=== PATIENT | male | born 1995 | race Caucasian/White ===

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

== ENCOUNTER 2018-02-17 10:19 | Emergency (ER) | payer OTHER ==
[2018-02-17 10:56] VITALS: RESP 18; TEMP 98.8
[2018-02-17] MEDS ORDERED: ACETAMINOPHEN TAB 500 MG TAB PO STA (11:37)
--- NOTE | 2018-02-17 11:46 | ED ---
Extremity Problem HPI - General Chief complaint: Extremity Problem,Nontraumatic Stated complaint: Anxiety Time Seen by Provider: 02/17/18 10:21 Source: EMS Mode of arrival: EMS Limitations: no limitations - History of Present Illness Initial comments: 22-year-old male patient presents to the emergency department today for evaluation of bilateral bicep pain. Patient states he feels a sharp pinching sensation. States that it comes on at rest. States that the pain is mostly on the left bicep however does occasionally happen in the right bicep. States he did lift a large chair 3 days ago. States has been taking Tylenol for his pain. He denies any numbness or tingling to the upper extremities. Patient does have history of kidney disease with hypokalemia. He does take potassium daily. Patient also has history of anxiety. Parent and family are present they 're concerned due to family history of heart disease. Patient denies any recent rash, fever, chills, shortness breath, chest pain, abdominal pain, nausea, vomiting, diarrhea, constipation, back pain, numbness, tingling, dizziness, weakness, hematuria, dysuria, urinary urgency, urinary frequency, headache, visual changes, or any other complaints. - Related Data Home Medications Medication Instructions Recorded Confirmed Potassium Chloride [Klor-Con 20] 20 meq PO BID 06/14/16 02/17/18 hydrOXYzine HCL [Atarax] 50 mg PO HS 10/30/17 02/17/18 Allergies Allergy/AdvReac Type Severity Reaction Status Date / Time latex Allergy Rash/Hives Verified 02/17/18 10:38 Penicillins Allergy Rash/Hives Verified 02/17/18 10:38 Review of Systems ROS Statement: Those systems with pertinent positive or pertinent negative responses have been documented in the HPI. ROS Other: All systems not noted in ROS Statement are negative. Past Medical History Past Medical History: Asthma, GERD/Reflux Additional Past Medical History / Comment(s): social anxiety History of Any Multi-Drug Resistant Organisms: None Reported Past Surgical History: No Surgical Hx Reported Past Psychological History: Anxiety Smoking Status: Never smoker Past Alcohol Use History: None Reported Past Drug Use History: None Reported General Exam Limitations: no limitations General appearance: alert, in no apparent distress, other (Physical well- developed, well-nourished adult male patient in no acute distress. Vital signs upon presentation are temperature 98.8F, pulse 92, respirations 18, blood pressure 147/83, pulse ox 98% on room air.) Eye exam: Present: normal appearance, PERRL, EOMI. Absent: scleral icterus, conjunctival injection, periorbital swelling ENT exam: Present: normal exam, normal oropharynx, mucous membranes moist Respiratory exam: Present: normal lung sounds bilaterally. Absent: respiratory distress, wheezes, rales, rhonchi, stridor Cardiovascular Exam: Present: regular rate, normal rhythm, normal heart sounds. Absent: systolic murmur, diastolic murmur, rubs, gallop, clicks GI/Abdominal exam: Present: soft, normal bowel sounds. Absent: distended, tenderness, guarding, rebound, rigid Extremities exam: Present: normal inspection, full ROM, tenderness (Tenderness over the bilateral biceps), normal capillary refill, other (Skin to the upper extremities is pink, warm, dry. Cap refills less than 3 seconds. Radial pulses 2+ and equal bilaterally.). Absent: pedal edema, joint swelling, calf tenderness Neurological exam: Present: alert, oriented X3, CN II-XII intact Psychiatric exam: Present: normal affect, normal mood Skin exam: Present: warm, dry, intact, normal color. Absent: rash Course Vital Signs 02/17/18 10:50 Temperature 98.8 F Pulse Rate 92 Respiratory 18 Rate Blood Pressure 147/83 O2 Sat by Pulse 98 Oximetry Medical Decision Making - Medical Decision Making 22-year-old male patient presents to the emergency department today with complaints of left bicep pain medication is in the right bicep as well. Physical examination did reveal some tenderness over the bicep. Patient does have history of hypokalemia and does take potassium supplement, we did check CMP potassium is normal 4.1. Kidney function is within normal range. EKG showed normal sinus rhythm with no ectopy or evidence of ST elevation or depression. Did discuss findings and results with the patient. He did lift a chair 3 days ago states there is some concern for muscle strain. He is instructed to take Tylenol for pain control. He is instructed to follow-up with his primary care physician for recheck in 1-2 days. Return parameters were discussed in detail. He verbalizes understanding and agrees with this plan. - Lab Data Result diagrams: 02/17/18 12:20 Lab Results 12/30/18 Range/Units 12:20 Sodium 144 (137-145) mmol/L Potassium 4.1 (3.5-5.1) mmol/L Chloride 107 (98-107) mmol/L Carbon Dioxide 25 (22-30) mmol/L Anion Gap 12 mmol/L BUN 9 (9-20) mg/dL Creatinine 1.09 (0.66-1.25) mg/dL Est GFR (CKD-EPI)AfAm >90 (>60 ml/min/1.73 sqM) Est GFR (CKD-EPI)NonAf >90 (>60 ml/min/1.73 sqM) Glucose 97 (74-99) mg/dL Calcium 9.9 (8.4-10.2) mg/dL Total Bilirubin 0.6 (0.2-1.3) mg/dL AST 95 H (17-59) U/L ALT 167 H (21-72) U/L Alkaline Phosphatase 101 (38-126) U/L Total Protein 8.7 H (6.3-8.2) g/dL Albumin 4.6 (3.5-5.0) g/dL - EKG Data -: EKG Interpreted by Md EKG Comments: EKG obtained at 1217 shows normal sinus rhythm with a ventricular rate of 84, AK interval 136, QRS duration 80, QT 346, QTc 408. No evidence of ST elevation or depression. Disposition Clinical Impression: Muscle ache Disposition: HOME SELF-CARE Condition: Good Instructions: Musculoskeletal Pain (ED) Additional Instructions: Continue taking Tylenol for pain control. Rest arms. Follow-up with your primary care physician for recheck in 1-2 days. Return immediately for any new , worsening, or concerning symptoms. Is patient prescribed a controlled substance at d/c from ED?: No Referrals: None,Stated [Primary Care Provider] - 1-2 days Time of Disposition: 12:48
[2018-02-17 12:38] LABS: ALT 167 U/L (21-72); AST 95 U/L (17-59); Albumin 4.6 g/dL (3.5-5.0); Alkaline Phosphatase 101 U/L (38-126); Anion Gap 12 mmol/L; Blood Urea Nitrogen 9 mg/dL (9-20); Calcium 9.9 mg/dL (8.4-10.2); Carbon Dioxide 25 mmol/L (22-30); Chloride 107 mmol/L (98-107); Glucose 97 mg/dL (74-99); Potassium 4.1 mmol/L (3.5-5.1); Sodium 144 mmol/L (137-145); Total Bilirubin 0.6 mg/dL (0.2-1.3); Total Protein 8.7 g/dL (6.3-8.2)
[2018-02-17 13:20] VITALS: BP 124/69; PULSE 73
== END 2018-02-17 13:18 | disposition home or self-care (01) ==
LOC: EC 10:19
DX: M79.18 Myalgia, other site (principal); E87.6 Hypokalemia; F41.9 Anxiety disorder, unspecified; Z79.899 Other long term (current) drug therapy; Z88.0 Allergy status to penicillin; Z91.040 Latex allergy status; Z82.49 Family history of ischemic heart disease and other diseases of the circulatory system
CPT/HCPCS: 36415; 80053; 93005; 99284

== ENCOUNTER 2021-02-24 12:48 | Emergency (ER) | payer OTHER ==
[2021-02-24] MEDS ORDERED: SODIUM CHLORIDE 0.9% 1,000 ML IV STA (13:01)
--- NOTE | 2021-02-24 13:05 | ED ---
Anxiety HPI - General Stated Complaint: Increased heart rate Time Seen by Provider: 02/24/21 12:52 Source: patient, RN notes reviewed Mode of arrival: EMS Limitations: no limitations - History of Present Illness Initial Comments: This is a pleasant 25-year-old male coming to the ER complaining of anxiety and fast heart rate. Patient also has shaking involving both upper extremities. Patient states he has had previous symptomology such as this. Patient states he had to come to the ER and get anxiety medications. Has a history of anxiety and panic attacks. Denies any chest pain. Did get a fluttering type sensation with a fast heart rate. No nausea or vomiting. No change in bowel or urination. Patient denies any stimulant use. No caffeine use. No illicit drug abuse. No fever or chills. No shortness of breath. No headache. No vision or hearing changes. No skin rashes or lesions. MD Complaint: anxiety - Related Data Home Medications: Home Medications Medication Instructions Recorded Confirmed hydrOXYzine HCL [Atarax] 50 mg PO DAILY 10/30/17 02/24/21 Ketoconazole 2% Shampoo [Nizoral] 1 applic TOPICAL Q3D 02/24/21 02/24/21 Allergies/Adverse Reactions: Allergies Allergy/AdvReac Type Severity Reaction Status Date / Time latex Allergy Rash/Hives Verified 02/24/21 14:10 Penicillins Allergy Rash/Hives Verified 02/24/21 14:10 Review of Systems ROS Statement: Those systems with pertinent positive or pertinent negative responses have been documented in the HPI. ROS Other: All systems not noted in ROS Statement are negative. Past Medical History Past Medical History: Asthma, GERD/Reflux Additional Past Medical History / Comment(s): social anxiety History of Any Multi-Drug Resistant Organisms: None Reported Past Surgical History: No Surgical Hx Reported Past Psychological History: Anxiety Past Alcohol Use History: None Reported Past Drug Use History: None Reported General Exam General appearance: alert, anxious Head exam: Present: atraumatic, normocephalic, normal inspection Eye exam: Present: normal appearance, PERRL, EOMI. Absent: scleral icterus, conjunctival injection, periorbital swelling Pupils: Present: normal accommodation ENT exam: Present: normal exam, normal oropharynx, mucous membranes moist Neck exam: Present: normal inspection. Absent: tenderness, meningismus, lymphadenopathy Respiratory exam: Present: normal lung sounds bilaterally. Absent: respiratory distress, wheezes, rales, rhonchi, stridor Cardiovascular Exam: Present: normal rhythm, tachycardia, normal heart sounds. Absent: systolic murmur, diastolic murmur, rubs, gallop, clicks GI/Abdominal exam: Present: soft, normal bowel sounds. Absent: distended, tenderness, guarding, rebound, rigid Extremities exam: Present: normal inspection, full ROM, normal capillary refill. Absent: tenderness, pedal edema, joint swelling, calf tenderness Back exam: Present: normal inspection Neurological exam: Present: alert, oriented X3, CN II-XII intact, normal gait, other (Patient has a fine tremor noted to both upper extremities. Does not appear to be anything focal. Cranial nerves II through XII are intact. Graham's coma scale is 15.). Absent: altered, abnormal gait, motor sensory deficit, reflexes normal Psychiatric exam: Present: normal mood, anxious. Absent: depressed, agitated, flat affect, manic, suicidal ideation Skin exam: Present: warm, dry, intact, normal color. 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 Asymptomatic. Heart rate is 94 as I'm assessing him in the room. Medical Decision Making - Medical Decision Making Patient presents with symptoms most consistent with anxiety with secondary tachycardia. Patient has had these before. He has no chest pain or shortness of breath. This unlikely to be other etiology such as pulmonary embolism or cardiac disease. Patient does have a tremor. Electrolyte disturbance is within the differential. We'll plan for EKG, serum electrolytes, reevaluation, anxiolytics. Patient does not appear to be ill or toxic. Infectious etiology unlikely. Case discussion detail with the supervising physician, Dr. Mcdonald. Patient asymptomatic at discharge. Hemodynamic stable with normal vital signs. Suspect the patient's symptomology is related to anxiety. However patient may need further outpatient testing. Patient told to call and make an appointment w ith his regular physician. H instructed to call tomorrow morning. Patient was told to return to the ER for any signs or symptoms worsen. Told to return immediately if any other problems arise. All questions answered. Treatment plan discussed. Patient in agreement - Lab Data Result diagrams: 02/24/21 13:14 02/24/21 15:27 Lab Results 02/24/21 02/24/21 02/24/21 Range/Units 13:14 13:14 13:14 WBC 7.9 (3.8-10.6) k/uL RBC 5.62 (4.30-5.90) m/uL Hgb 16.9 (13.0-17.5) gm/dL Hct 48.4 (39.0-53.0) % MCV 86.0 (80.0-100.0) fL MCH 30.1 (25.0-35.0) pg MCHC 35.0 (31.0-37.0) g/dL RDW 12.9 (11.5-15.5) % Plt Count 250 (150-450) k/uL MPV 6.8 Neutrophils % 62 % Lymphocytes % 30 % Monocytes % 5 % Eosinophils % 2 % Basophils % 1 % Neutrophils # 4.9 (1.3-7.7) k/uL Lymphocytes # 2.3 (1.0-4.8) k/uL Monocytes # 0.4 (0-1.0) k/uL Eosinophils # 0.1 (0-0.7) k/uL Basophils # 0.0 (0-0.2) k/uL Sodium 141 (137-145) mmol/L Potassium 3.9 (3.5-5.1) mmol/L Chloride 106 (98-107) mmol/L Carbon Dioxide 25 (22-30) mmol/L Anion Gap 10 mmol/L BUN 7 L (9-20) mg/dL Creatinine 1.08 (0.66-1.25) mg/dL Est GFR (CKD-EPI)AfAm >90 (>60 ml/min/1.73 sqM) Est GFR (CKD-EPI)NonAf >90 (>60 ml/min/1.73 sqM) Glucose 170 H (74-99) mg/dL Calcium 9.9 (8.4-10.2) mg/dL Magnesium 2.1 (1.6-2.3) mg/dL Troponin I (0.000-0.034) ng/mL TSH 0.849 (0.465-4.680) mIU/L Urine Opiates Screen Not Detected (NotDetected) Ur Oxycodone Screen Not Detected (NotDetected) Urine Methadone Screen Not Detected (NotDetected) Ur Propoxyphene Screen Not Detected (NotDetected) Ur Barbiturates Screen Not Detected (NotDetected) U Tricyclic Antidepress Not Detected (NotDetected) Ur Phencyclidine Scrn Not Detected (NotDetected) Ur Amphetamines Screen Not Detected (NotDetected) U Methamphetamines Scrn Not Detected (NotDetected) U Benzodiazepines Scrn Not Detected (NotDetected) Urine Cocaine Screen Not Detected (NotDetected) U Marijuana (THC) Screen Not Detected (NotDetected) Coronavirus (PCR) (Not Detectd) 02/24/21 02/24/21 02/24/21 Range/Units 13:14 15:27 15:27 WBC (3.8-10.6) k/uL RBC (4.30-5.90) m/uL Hgb (13.0-17.5) gm/dL Hct (39.0-53.0) % MCV (80.0-100.0) fL MCH (25.0-35.0) pg MCHC (31.0-37.0) g/dL RDW (11.5-15.5) % Plt Count (150-450) k/uL MPV Neutrophils % % Lymphocytes % % Monocytes % % Eosinophils % % Basophils % % Neutrophils # (1.3-7.7) k/uL Lymphocytes # (1.0-4.8) k/uL Monocytes # (0-1.0) k/uL Eosinophils # (0-0.7) k/uL Basophils # (0-0.2) k/uL Sodium (137-145) mmol/L Potassium 4.2 (3.5-5.1) mmol/L Chloride (98-107) mmol/L Carbon Dioxide (22-30) mmol/L Anion Gap mmol/L BUN (9-20) mg/dL Creatinine (0.66-1.25) mg/dL Est GFR (CKD-EPI)AfAm (>60 ml/min/1.73 sqM) Est GFR (CKD-EPI)NonAf (>60 ml/min/1.73 sqM) Glucose (74-99) mg/dL Calcium (8.4-10.2) mg/dL Magnesium 2.1 (1.6-2.3) mg/dL Troponin I <0.012 (0.000-0.034) ng/mL TSH (0.465-4.680) mIU/L Urine Opiates Screen (NotDetected) Ur Oxycodone Screen (NotDetected) Urine Methadone Screen (NotDetected) Ur Propoxyphene Screen (NotDetected) Ur Barbiturates Screen (NotDetected) U Tricyclic Antidepress (NotDetected) Ur Phencyclidine Scrn (NotDetected) Ur Amphetamines Screen (NotDetected) U Methamphetamines Scrn (NotDetected) U Benzodiazepines Scrn (NotDetected) Urine Cocaine Screen (NotDetected) U Marijuana (THC) Screen (NotDetected) Coronavirus (PCR) Not Detected (Not Detectd) - EKG Data -: EKG Interpreted by Me EKG Comments: EKG done at 2256 and review by the ED attending physician shows artifact in lead V1. No evidence of acute ST or T-wave changes. Possible left atrial enlargement. Normal intervals. Sinus tachycardia with a rate of 118. Disposition Clinical Impression: Palpitation, Hyperventilation Disposition: HOME SELF-CARE Condition: Good Instructions (If sedation given, give patient instructions): Generalized Anxiety Disorder (ED), Heart Palpitations (ED) Additional Instructions: Follow-up with your regular physician as directed. Return to the ER immediately if any symptoms worsen, new symptoms arise, or any other problems develop. Is patient prescribed a controlled substance at d/c from ED?: No Referrals: Cristiane Beltre MD [Primary Care Provider] - 1-2 days Time of Disposition: 16:35
[2021-02-24 13:06] VITALS: RESP 18
[2021-02-24] MEDS ORDERED: LORazepam 2 MG/ML INJ IV STA (13:07)
[2021-02-24 13:31] LABS: Basophils % (A) 1 %; Eosinophils # (A) 0.1 k/uL (0-0.7); Eosinophils % (A) 2 %; HCT 48.4 % (39.0-53.0); HGB 16.9 gm/dL (13.0-17.5); Lymphocytes # (A) 2.3 k/uL (1.0-4.8); Lymphocytes % (A) 30 %; MCH 30.1 pg (25.0-35.0); Mean Platelet Volume 6.8; Monocytes # (A) 0.4 k/uL (0-1.0); Monocytes % (A) 5 %; Neutrophils # (A) 4.9 k/uL (1.3-7.7); Neutrophils % (A) 62 %; Platelet Count 250 k/uL (150-450); RBC 5.62 m/uL (4.30-5.90); RDW 12.9 % (11.5-15.5); WBC 7.9 k/uL (3.8-10.6)
--- NOTE | 2021-02-24 13:41 | XR ---
EXAMINATION TYPE: XR chest 1V portable DATE OF EXAM: 02/24/2021 COMPARISON: NONE HISTORY: Tachycardia. TECHNIQUE: Single AP frontal upright view of the chest is obtained. FINDINGS: There is no focal air space opacity, pleural effusion, or pneumothorax seen. The cardiac silhouette size is within normal limits. The osseous structures are intact. IMPRESSION: No acute process.
[2021-02-24 13:43] LABS: African American GFR (CKD) >90 (>60 ml/min/1.73 sqM); Anion Gap 10 mmol/L; Blood Urea Nitrogen 7 mg/dL (9-20); Calcium 9.9 mg/dL (8.4-10.2); Carbon Dioxide 25 mmol/L (22-30); Chloride 106 mmol/L (98-107); Glucose 170 mg/dL (74-99); Non-African American GFR(CKD) >90 (>60 ml/min/1.73 sqM); Sodium 141 mmol/L (137-145)
[2021-02-24 14:07] LABS: Magnesium 2.1 mg/dL (1.6-2.3); Potassium 3.9 mmol/L (3.5-5.1)
[2021-02-24 14:14] LABS: Amphetamine Screen,Urine Not Detected (NotDetected); Barbiturate Screen,Urine Not Detected (NotDetected); Benzodiazepines Screen,Urine Not Detected (NotDetected); Cocaine Screen,Urine Not Detected (NotDetected); Methadone Screen, Urine Not Detected (NotDetected); Opiate Screen,Urine Not Detected (NotDetected); Oxycodone Screen, Urine Not Detected (NotDetected); Phencyclidine Screen,Urine Not Detected (NotDetected); Tricyclic Antidepressant,Urine Not Detected (NotDetected); Urn Cannabinoid Scrn Not Detected (NotDetected)
[2021-02-24 15:46] LABS: Magnesium 2.1 mg/dL (1.6-2.3); Potassium 4.2 mmol/L (3.5-5.1)
[2021-02-24 16:54] VITALS: BP 133/71; PULSE 107; TEMP 97.5
== END 2021-02-24 16:54 | disposition home or self-care (01) ==
LOC: EC 12:48
DX: R00.2 Palpitations (principal); R06.4 Hyperventilation; Z91.040 Latex allergy status; J45.909 Unspecified asthma, uncomplicated; K21.9 Gastro-esophageal reflux disease without esophagitis; F41.9 Anxiety disorder, unspecified; Z88.0 Allergy status to penicillin; Z20.822 Contact with and (suspected) exposure to COVID-19
CPT/HCPCS: 99285; 96374; 96361; 36415; 93005; 80048; 83735; 84132; 84443; 84484; 85025; 80306; 87635; 71045; J2060

== ENCOUNTER → 2021-09-02 | Outpatient (CLI) | payer OTHER ==
--- NOTE | 2021-09-02 10:40 | US ---
EXAMINATION TYPE: US abdomen complete DATE OF EXAM: 09/02/2021 COMPARISON: NONE CLINICAL HISTORY: R74.8 Elevated liverr enzymes. Elevated liver enzymes EXAM MEASUREMENTS: Liver Length: 12.3 cm Gallbladder Wall: 0.20 cm CBD: 0.22 cm Spleen: 12.1 cm Right Kidney: 10.3 x 5.4 x 5.2 cm Left Kidney: 12.1 X 4.9 X 4.6 cm Pancreas: Obscured by bowel gas Liver: Increased attenuation, heterogeneous Gallbladder: wnl Evidence for sonographic Thomas's sign: No CBD: wnl Spleen: wnl Right Kidney: wnl Left Kidney: wnl Upper IVC: wnl Abd Aorta: wnl The visualized liver is heterogeneously hyperechoic. Evaluation for focal masses suboptimal due to th e heterogeneity. No surrounding ascites. The intrahepatic portion of the IVC and visualized proximal, mid, and distal abdominal aorta are within normal limits. There is no evidence of cholelithiasis. Common bile duct is unremarkable. Suboptimal evaluation of pancreas on initial images. The spleen is unremarkable. Kidneys are symmetric and free of hydronephrosis. No renal lesions are seen. IMPRESSION: Heterogeneous hyperechoic appearance of liver consistent with diffuse fatty infiltration and/or underlying hepatocellular disease. The former is favored.
--- NOTE | 2021-09-02 11:47 | US ---
EXAMINATION TYPE: US renal artery duplex complet DATE OF EXAM: 09/02/2021 COMPARISON: Same-day ultrasound abdomen. CLINICAL HISTORY: E87.6 HYPOKALEMIA R03.0 ELEVATED BLOOD-PRESSURE READING WITH. HTN for 1-2 months MEASUREMENTS: RENAL SIZE: Rt Kidney: 10.3 x 5.4 x 5.2cm Lt Kidney: 12.1 x 4.9 x 4.6cm RESISTANCE INDEX Right: 0.62 Left: 0.62 RA/AO RATIO (< 3.5 ) Right: 1.2 Left: 2.2 RA VELOCITY ( < 180 cm/s) Right: 174.2cm/s Left: 322.7cm/s limitations due to overlying bowel content. aorta and renal images under abdomen complete from suzanne faulkner. aorta and renal appear unremarkable. left renal artery stenosis Suboptimal study due to overlying Bowel gas. No aneurysm in the visualized abdominal aorta. Renal siz e is fairly symmetric and within normal limits. Some elevated left renal artery velocity in the proxi mal left renal artery without abnormal ratio or resistive index. IMPRESSION: No convincing evidence for suspicious focal renal artery stenosis. If symptoms of uncontr olled hypertension persists further investigation with MRA aorta would be advised.
== END | disposition home or self-care (01) ==
LOC: RADUSWWP 09:30
PROVIDERS: ATTEND Family Medicine
DX: K76.0 Fatty (change of) liver, not elsewhere classified (principal)
CPT/HCPCS: 76700; 93975

== ENCOUNTER 2022-01-01 18:57 | Emergency (ER) | payer OTHER ==
[2022-01-01 19:04] VITALS: TEMP 98.1
[2022-01-01] MEDS ORDERED: diphenhydrAMINE 50 MG/ML 1 ML VIAL IM STA (19:22)
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
[2022-01-01 19:35] LABS: Basophils # (A) 0.1 k/uL (0-0.2); Basophils % (A) 1 %; Eosinophils # (A) 0.1 k/uL (0-0.7); Eosinophils % (A) 1 %; HCT 46.1 % (39.0-53.0); HGB 15.9 gm/dL (13.0-17.5); Lymphocytes # (A) 1.8 k/uL (1.0-4.8); Lymphocytes % (A) 22 %; MCH 27.9 pg (25.0-35.0); MCHC 34.6 g/dL (31.0-37.0); MCV 80.8 fL (80.0-100.0); Mean Platelet Volume 7.2; Monocytes # (A) 0.3 k/uL (0-1.0); Monocytes % (A) 4 %; Neutrophils # (A) 5.7 k/uL (1.3-7.7); Neutrophils % (A) 71 %; Platelet Count 231 k/uL (150-450); RBC 5.71 m/uL (4.30-5.90); RDW 13.4 % (11.5-15.5)
[2022-01-01 20:12] LABS: African American GFR (CKD) >90 (>60 ml/min/1.73 sqM); Anion Gap 10 mmol/L; Blood Urea Nitrogen 9 mg/dL (9-20); Calcium 9.6 mg/dL (8.4-10.2); Carbon Dioxide 26 mmol/L (22-30); Chloride 105 mmol/L (98-107); Glucose 107 mg/dL (74-99); Non-African American GFR(CKD) >90 (>60 ml/min/1.73 sqM); Potassium 4.2 mmol/L (3.5-5.1); Sodium 141 mmol/L (137-145)
--- NOTE | 2022-01-01 20:18 | XR ---
EXAMINATION TYPE: XR chest 2V DATE OF EXAM: 01/01/2022 COMPARISON: 02/24/2021 HISTORY: Dizziness TECHNIQUE: 2 views FINDINGS: Heart and mediastinum are normal. Lungs are clear. Diaphragm is normal. Bony thorax is inta ct. IMPRESSION: Normal chest. No change.
[2022-01-01 21:37] VITALS: BP 140/80; PULSE 76; RESP 16
== END 2022-01-01 21:37 | disposition home or self-care (01) ==
LOC: EC 18:57
DX: F41.9 Anxiety disorder, unspecified (principal); J45.909 Unspecified asthma, uncomplicated; K21.9 Gastro-esophageal reflux disease without esophagitis; Z79.899 Other long term (current) drug therapy; Z91.040 Latex allergy status; Z88.0 Allergy status to penicillin
CPT/HCPCS: 36415; 93005; 80048; 85025; 71046; 99285; 96372; J1200

== ENCOUNTER 2022-02-02 19:26 | Emergency (ER) | payer OTHER ==
[2022-02-02 19:47] VITALS: BP 143/83; PULSE 100; RESP 20; TEMP 98.2
[2022-02-02] MEDS ORDERED: ONDANSETRON 4 MG/2 ML VIAL IVP STA (21:57)
[2022-02-02] MEDS ORDERED: PANTOPRAZOLE 40 MG/10 ML VIAL IVP STA (21:57)
[2022-02-02] MEDS ORDERED: MORPHINE SULFATE 4 MG/ML SYRINGE IV STA (21:57)
--- NOTE | 2022-02-02 21:57 | ED ---
Abdominal Pain HPI - General Chief Complaint: Abdominal Pain Stated Complaint: abdomen pain Time Seen by Provider: 02/02/22 21:56 Source: patient, RN notes reviewed, old records reviewed Mode of arrival: ambulatory Limitations: no limitations - History of Present Illness Initial Comments: This is a 26-year-old male DF for evaluation patient has present sensation today for evaluation of abdominal pain. History of abdominal pain history of nausea no vomiting does admit to diminished non-normal bowel habits. No travel history no sick contacts no history of surgery MD Complaint: abdominal pain -: days(s) Location: diffuse, epigastric, suprapubic Radiation: epigastric, suprapubic Migration to: epigastric, suprapubic Severity: moderate Severity scale (1-10): 7 Quality: fullness, sharp Consistency: intermittent Improves With: nothing Worsens With: nothing Context: other (0) Associated Symptoms: nausea, vomiting Treatments Prior to Arrival: other (0) - Related Data Home Medications Medication Instructions Recorded Confirmed hydrOXYzine HCL [Atarax] 50 mg PO DAILY 10/30/17 02/24/21 Ketoconazole 2% Shampoo [Nizoral] 1 applic TOPICAL Q3D 02/24/21 02/24/21 Allergies Allergy/AdvReac Type Severity Reaction Status Date / Time latex Allergy Rash/Hives Verified 02/02/22 19:47 Penicillins Allergy Rash/Hives Verified 02/02/22 19:47 Review of Systems ROS Statement: Those systems with pertinent positive or pertinent negative responses have been documented in the HPI. ROS Other: All systems not noted in ROS Statement are negative. Past Medical History Past Medical History: Asthma, GERD/Reflux Additional Past Medical History / Comment(s): social anxiety History of Any Multi-Drug Resistant Organisms: None Reported Past Surgical History: No Surgical Hx Reported Past Psychological History: Anxiety Past Alcohol Use History: None Reported Past Drug Use History: None Reported General Exam Limitations: no limitations General appearance: alert, in no apparent distress Head exam: Present: atraumatic, normocephalic, normal inspection Eye exam: Present: normal appearance, PERRL, EOMI. Absent: scleral icterus, conjunctival injection, periorbital swelling ENT exam: Present: normal exam, mucous membranes moist Neck exam: Present: normal inspection. Absent: tenderness, meningismus, lymphadenopathy Respiratory exam: Present: normal lung sounds bilaterally. Absent: respiratory distress, wheezes, rales, rhonchi, stridor Cardiovascular Exam: Present: regular rate, normal rhythm, normal heart sounds. Absent: systolic murmur, diastolic murmur, rubs, gallop, clicks GI/Abdominal exam: Present: soft, normal bowel sounds. Absent: distended, tenderness, guarding, rebound, rigid Extremities exam: Present: normal inspection, full ROM, normal capillary refill. Absent: tenderness, pedal edema, joint swelling, calf tenderness Back exam: Present: normal inspection Neurological exam: Present: alert, oriented X3, CN II-XII intact Psychiatric exam: Present: normal affect, normal mood Skin exam: Present: warm, dry, intact, normal color. Absent: rash Course Vital Signs 02/02/22 19:44 Temperature 98.2 F Pulse Rate 100 Respiratory 20 Rate Blood Pressure 143/83 O2 Sat by Pulse 96 Oximetry - Reevaluation(s) Reevaluation #1: 02/02/22 Medical record is reviewed Patient symptoms improved here in the ER Patient informed of results and questions answered Medical Decision Making - Medical Decision Making 26 male who states is had diminished bowel output lately not normal for about 2 months but has computed tomography scan here in the emergency room which is nonsignificant. Patient can be discharged home - Lab Data Result diagrams: 02/02/22 22:04 02/02/22 22:04 Lab Results 02/02/22 02/02/22 Range/Units 22:04 22:04 WBC 8.6 (3.8-10.6) k/uL RBC 5.68 (4.30-5.90) m/uL Hgb 16.9 (13.0-17.5) gm/dL Hct 46.7 (39.0-53.0) % MCV 82.2 (80.0-100.0) fL MCH 29.8 (25.0-35.0) pg MCHC 36.2 (31.0-37.0) g/dL RDW 12.8 (11.5-15.5) % Plt Count 257 (150-450) k/uL MPV 6.8 Neutrophils % 68 % Lymphocytes % 24 % Monocytes % 5 % Eosinophils % 1 % Basophils % 1 % Neutrophils # 5.8 (1.3-7.7) k/uL Lymphocytes # 2.1 (1.0-4.8) k/uL Monocytes # 0.4 (0-1.0) k/uL Eosinophils # 0.1 (0-0.7) k/uL Basophils # 0.1 (0-0.2) k/uL Sodium 143 (137-145) mmol/L Potassium 4.4 (3.5-5.1) mmol/L Chloride 104 (98-107) mmol/L Carbon Dioxide 28 (22-30) mmol/L Anion Gap 11 mmol/L BUN 7 L (9-20) mg/dL Creatinine 1.13 (0.66-1.25) mg/dL Est GFR (CKD-EPI)AfAm >90 (>60 ml/min/1.73 sqM) Est GFR (CKD-EPI)NonAf >90 (>60 ml/min/1.73 sqM) Glucose 94 (74-99) mg/dL Calcium 9.6 (8.4-10.2) mg/dL Total Bilirubin 0.6 (0.2-1.3) mg/dL AST 60 H (17-59) U/L ALT 101 H (4-49) U/L Alkaline Phosphatase 110 (38-126) U/L Total Protein 8.6 H (6.3-8.2) g/dL Albumin 4.9 (3.5-5.0) g/dL Amylase 48 (30-110) U/L Lipase 64 (23-300) U/L - Radiology Data Radiology results: report reviewed (CT head and pelvis negative for acute disease), image reviewed Disposition Clinical Impression: Abdominal pain Disposition: HOME SELF-CARE Condition: Good Instructions (If sedation given, give patient instructions): Abdominal Pain (ED) Is patient prescribed a controlled substance at d/c from ED?: No Referrals: Cristiane Beltre MD [Primary Care Provider] - 1-2 days Time of Disposition: 00:25
[2022-02-02 22:24] LABS: Basophils # (A) 0.1 k/uL (0-0.2); Basophils % (A) 1 %; Eosinophils # (A) 0.1 k/uL (0-0.7); Eosinophils % (A) 1 %; HCT 46.7 % (39.0-53.0); HGB 16.9 gm/dL (13.0-17.5); Lymphocytes # (A) 2.1 k/uL (1.0-4.8); Lymphocytes % (A) 24 %; MCH 29.8 pg (25.0-35.0); MCHC 36.2 g/dL (31.0-37.0); MCV 82.2 fL (80.0-100.0); Mean Platelet Volume 6.8; Monocytes # (A) 0.4 k/uL (0-1.0); Monocytes % (A) 5 %; Neutrophils # (A) 5.8 k/uL (1.3-7.7); Neutrophils % (A) 68 %; Platelet Count 257 k/uL (150-450); RBC 5.68 m/uL (4.30-5.90); RDW 12.8 % (11.5-15.5); WBC 8.6 k/uL (3.8-10.6)
[2022-02-02 22:39] LABS: ALT 101 U/L (4-49); AST 60 U/L (17-59); African American GFR (CKD) >90 (>60 ml/min/1.73 sqM); Albumin 4.9 g/dL (3.5-5.0); Alkaline Phosphatase 110 U/L (38-126); Amylase 48 U/L (30-110); Anion Gap 11 mmol/L; Blood Urea Nitrogen 7 mg/dL (9-20); Calcium 9.6 mg/dL (8.4-10.2); Carbon Dioxide 28 mmol/L (22-30); Chloride 104 mmol/L (98-107); Glucose 94 mg/dL (74-99); Lipase 64 U/L (23-300); Non-African American GFR(CKD) >90 (>60 ml/min/1.73 sqM); Potassium 4.4 mmol/L (3.5-5.1); Sodium 143 mmol/L (137-145); Total Bilirubin 0.6 mg/dL (0.2-1.3); Total Protein 8.6 g/dL (6.3-8.2)
--- NOTE | 2022-02-02 23:27 | CT ---
EXAMINATION TYPE: CT abdomen pelvis w con DATE OF EXAM: 02/02/2022 COMPARISON: None HISTORY: abdominal pain and loose stools CT DLP: 1889.3 mGycm Automated exposure control for dose reduction was used. CONTRAST: Performed with IV Contrast, patient injected with 100 mL of Isovue 300. Images obtained from the diaphragm to the floor the pelvis with IV contrast. Lung bases are clear. No pleural effusion. Heart size is normal. No pericardial effusion. Liver splee n and stomach pancreas and gallbladder appear intact. The bile ducts are nondilated. There is no adrenal mass. Kidneys of normal size and contour. No hydronephrosis. There is satisfactor y contrast opacification of the kidneys. Ureters are not dilated. Delayed images show normal renal ex cretion. No retroperitoneal adenopathy. Appendix is posterior and inferior and appears normal. The bl adder distends smoothly. No inguinal hernia. No free fluid in the pelvis. No pelvic mass. There is no mesenteric edema. No ascites or free air. No sign of a bowel obstruction. No intestinal w all thickening. The lumbar vertebra have normal spacing and alignment. No compression fracture. Bony pelvis is intact . The hip joints are intact. IMPRESSION: Normal appendix. No renal stone or obstruction. No evidence of inflammatory bowel disease.
== END 2022-02-03 00:45 | disposition home or self-care (01) ==
LOC: EC 19:26
DX: R10.13 Epigastric pain (principal); R10.30 Lower abdominal pain, unspecified; F41.9 Anxiety disorder, unspecified; Z88.0 Allergy status to penicillin; Z91.040 Latex allergy status; Z79.899 Other long term (current) drug therapy
CPT/HCPCS: 36415; 80053; 82150; 83690; 85025; 74177; 99284; 96374; 96375; J2270; J2405; C9113; Q9967

== ENCOUNTER 2022-03-01 20:19 | Emergency (ER) | payer OTHER ==
[2022-03-01 20:45] VITALS: RESP 18; TEMP 98.2
[2022-03-01 21:06] LABS: Basophils # (A) 0.1 k/uL (0-0.2); Basophils % (A) 1 %; Eosinophils # (A) 0.1 k/uL (0-0.7); Eosinophils % (A) 1 %; HGB 16.1 gm/dL (13.0-17.5); Lymphocytes % (A) 21 %; MCH 27.7 pg (25.0-35.0); MCHC 34.9 g/dL (31.0-37.0); MCV 79.6 fL (80.0-100.0); Mean Platelet Volume 6.2; Monocytes # (A) 0.5 k/uL (0-1.0); Monocytes % (A) 6 %; Neutrophils # (A) 6.6 k/uL (1.3-7.7); Neutrophils % (A) 71 %; Platelet Count 243 k/uL (150-450); RBC 5.79 m/uL (4.30-5.90); RDW 12.6 % (11.5-15.5); WBC 9.4 k/uL (3.8-10.6)
[2022-03-01 21:11] LABS: ALT 111 U/L (4-49); AST 64 U/L (17-59); African American GFR (CKD) >90 (>60 ml/min/1.73 sqM); Alkaline Phosphatase 90 U/L (38-126); Anion Gap 11 mmol/L; Blood Urea Nitrogen 10 mg/dL (9-20); Calcium 9.8 mg/dL (8.4-10.2); Carbon Dioxide 27 mmol/L (22-30); Chloride 105 mmol/L (98-107); Glucose 112 mg/dL (74-99); Magnesium 2.2 mg/dL (1.6-2.3); Non-African American GFR(CKD) >90 (>60 ml/min/1.73 sqM); Potassium 3.7 mmol/L (3.5-5.1); Sodium 143 mmol/L (137-145); Total Bilirubin 0.9 mg/dL (0.2-1.3); Total Protein 8.9 g/dL (6.3-8.2)
--- NOTE | 2022-03-01 21:20 | XR ---
EXAMINATION TYPE: XR chest 2V DATE OF EXAM: 03/01/2022 9:03 PM COMPARISON: Chest radiographs from 01/01/2022. TECHNIQUE: XR chest 2V Frontal and lateral views of the chest. CLINICAL INDICATION:Male, 26 years old with history of Chest Pain; FINDINGS: Lungs/Pleura: There is no evidence of pleural effusion, focal consolidation, or pneumothorax. Pulmonary vascularity: Unremarkable. Heart/mediastinum: Cardiomediastinal silhouette is unremarkable. Musculoskeletal: No acute osseous pathology. IMPRESSION: No acute cardiopulmonary disease/process.
[2022-03-01] MEDS ORDERED: SODIUM CHLORIDE 0.9% 1,000 ML IV STA (22:37)
[2022-03-01 23:11] VITALS: BP 127/84; PULSE 79
--- NOTE | 2022-03-01 23:59 | ED ---
Chest Pain HPI - General Chief Complaint: Chest Pain Stated Complaint: chest pain Time Seen by Provider: 03/01/22 22:36 Source: patient Mode of arrival: ambulatory - History of Present Illness Initial Comments: Patient is a 26-year-old male who presents to the emergency department with a chief complaint of chest pain. Patient states for the past 2 nights around 6 PM he feels a "shock wave "sensation over his chest. The episode lasted about 30 seconds and goes away on its own. The pain is not radiational, nonexertional. Patient has associated palpitations durig this time. No shortness of breath, nausea, vomiting, dizziness, lightheadedness. No personal or family history of cardiac disease. Denies past and present use of tobacco. Denies alcohol use. MD Complaint: chest pain - Related Data Home Medications Medication Instructions Recorded Confirmed hydrOXYzine HCL [Atarax] 50 mg PO DAILY 10/30/17 02/24/21 Ketoconazole 2% Shampoo [Nizoral] 1 applic TOPICAL Q3D 02/24/21 02/24/21 Allergies Allergy/AdvReac Type Severity Reaction Status Date / Time latex Allergy Rash/Hives Verified 03/01/22 20:44 Penicillins Allergy Rash/Hives Verified 03/01/22 20:44 Review of Systems ROS Statement: Those systems with pertinent positive or pertinent negative responses have been documented in the HPI. ROS Other: All systems not noted in ROS Statement are negative. Past Medical History Past Medical History: Asthma, GERD/Reflux Additional Past Medical History / Comment(s): social anxiety History of Any Multi-Drug Resistant Organisms: None Reported Past Surgical History: No Surgical Hx Reported Past Psychological History: Anxiety Past Alcohol Use History: None Reported Past Drug Use History: None Reported General Exam General appearance: alert, in no apparent distress Respiratory exam: Present: normal lung sounds bilaterally. Absent: respiratory distress, wheezes, rales, rhonchi, stridor Cardiovascular Exam: Present: regular rate, normal rhythm, normal heart sounds. Absent: systolic murmur, diastolic murmur, rubs, gallop, clicks GI/Abdominal exam: Present: soft, normal bowel sounds. Absent: distended, tenderness, guarding, rebound, rigid Extremities exam: Present: normal inspection, full ROM, normal capillary refill. Absent: pedal edema, calf tenderness Neurological exam: Present: alert, oriented X3, CN II-XII intact Psychiatric exam: Present: normal affect, normal mood Skin exam: Present: warm, dry, intact, normal color. Absent: rash Course Vital Signs 03/01/22 03/01/22 20:40 23:10 Temperature 98.2 F Pulse Rate 112 H 79 Respiratory 18 18 Rate Blood Pressure 138/80 127/84 O2 Sat by Pulse 93 L 98 Oximetry Chest Pain MDM - MDM Was pt. sent in by a medical professional or institution (, PA, [employer], urgent care, hospital, or jail...) When possible be specific @ -[No] Did you speak to anyone other than the patient for history (EMS, parent, family, police, friend...)? What history was obtained from this source @ -[No] Did you review nursing and triage notes (agree or disagree)? Why? @ -[I reviewed and agree with nursing and triage notes] Were old charts reviewed (outside hosp., previous admission, EMS record, old EKG , old radiological studies, urgent care reports/EKG's, jail records)? Report findings @ -[No old charts were reviewed] Differential Diagnosis (chest pain, altered mental status, abdominal pain women, abdominal pain men, vaginal bleeding, weakness, fever, dyspnea, syncope, headache, dizziness, GI bleed, back pain, seizure, CVA, palpatations, mental hea lth)? @ Differential Chest Pain: Stable Angina, Unstable Angina, STEMI, NSTEMI Aortic Dissection, Pneumothorax, Musculoskeletal, Esophageal Spasm GERD, Cholecystitis, Pancreatitis, Zoster, this is not meant to be an all-inclusive list. EKG interpreted by me (3pts min.). @ -Sinus rhythm, no ST segment or T-wave abnormalities. Ventricular rate 64, IL interval 165, QRS duration 104, QTc 393 X-rays interpreted by me (1pt min.). @ -Yes, chest x-ray negative for acute process CT interpreted by me (1pt min.). @ -[None done] U/S interpreted by me (1pt. min.). @ -[None done] What testing was considered but not performed or refused? (CT, X-rays, U/S, labs)? Why? @ -[None] What meds were considered but not given or refused? Why? @ -[None] Did you discuss the management of the patient with other professionals (professionals i.e. , PA, [employer], lab, RT, psych nurse, director of social work, mems engineer, teacher, command and control officer, case therapist)? Give summary @ -[No] Was smoking cessation discussed for >3mins.? @ -[No] Was critical care preformed (if so, how long)? @ -[No] Were there social determinants of health that impacted care today? How? (Homelessness, low income, unemployed, alcoholism, drug addiction, trans portation, low edu. Level, literacy, decrease access to med. care, fpc, rehab)? @ -[No] Was there de-escalation of care discussed even if they declined (Discuss DNR or withdrawal of care, Hospice)? DNR status @ -[No] What co-morbidities impacted this encounter? (DM, HTN, Smoking, COPD, CAD, Cancer, CVA, ARF, Chemo, Hep., AIDS, mental health diagnosis, sleep apnea, morbid obesity)? @ -[None] Was patient admitted / discharged? Hospital course, mention meds given and route, prescriptions, significant lab abnormalities, going to OR and other pertinent info. @ This is a 26-year-old with atypical chest pain. EKG shows normal sinus rhythm without ST segment or T-wave abnormalities. Chest x-ray negative for acute process. Patient does not have risk factors for acute coronary syndrome. He will be discharged with instruction to follow-up with his primary care provider. Undiagnosed new problem with uncertain prognosis? @ -[No] Drug Therapy requiring intensive monitoring for toxicity (Heparin, Nitro, In sulin, Cardizem)? @ -[No] Were any procedures done? @ -[No] Diagnosis/symptom? @ -chest pain Acute, or Chronic, or Acute on Chronic? @ -acute Uncomplicated (without systemic symptoms) or Complicated (systemic symptoms)? @ -uncomplicated Side effects of treatment? @ -[No] Exacerbation, Progression, or Severe Exacerbation? @ -[No] Poses a threat to life or bodily function? How? (Chest pain, [place], [place], pneumonia, PE, COPD, DKA, ARF, appy, cholecystitis, CVA, Diverticulitis, Homicidal, Suicidal, threat to staff... and all critical care pts) @ -[No] Dr. Bustillo is my attending. Disposition Clinical Impression: Chest pain Disposition: HOME SELF-CARE Condition: Good Instructions (If sedation given, give patient instructions): Chest Pain (ED) Additional Instructions: Follow up with PCP in 1-2 days. Return to the ED if you experience new, concerning, or worsening symptoms. Is patient prescribed a controlled substance at d/c from ED?: No Referrals: None,Stated [Primary Care Provider] - 1-2 days Time of Disposition: 23:59
== END 2022-03-02 00:03 | disposition home or self-care (01) ==
LOC: EC 20:19
DX: R07.89 Other chest pain (principal); J45.909 Unspecified asthma, uncomplicated; F41.9 Anxiety disorder, unspecified; Z91.040 Latex allergy status; Z88.0 Allergy status to penicillin
CPT/HCPCS: 36415; 71046; 80053; 83735; 84443; 84484; 85025; 87635; 93005; 99285

== ENCOUNTER 2022-03-03 13:16 | Emergency (ER) | payer OTHER ==
[2022-03-03 13:26] VITALS: TEMP 98.4
[2022-03-03 14:36] LABS: Basophils % (A) 0 %; Eosinophils % (A) 0 %; HCT 46.7 % (39.0-53.0); HGB 16.3 gm/dL (13.0-17.5); Lymphocytes # (A) 1.2 k/uL (1.0-4.8); Lymphocytes % (A) 14 %; MCH 28.1 pg (25.0-35.0); MCHC 34.8 g/dL (31.0-37.0); MCV 80.8 fL (80.0-100.0); Mean Platelet Volume 7.3; Monocytes # (A) 0.4 k/uL (0-1.0); Monocytes % (A) 5 %; Neutrophils # (A) 6.9 k/uL (1.3-7.7); Neutrophils % (A) 80 %; Platelet Count 228 k/uL (150-450); RBC 5.78 m/uL (4.30-5.90); RDW 12.9 % (11.5-15.5); WBC 8.7 k/uL (3.8-10.6)
[2022-03-03 15:00] LABS: Partial Thromboplastin Time 24.9 sec (22.0-30.0); Prothrombin Time 10.8 sec (9.0-12.0)
--- NOTE | 2022-03-03 15:02 | ED ---
Chest Pain HPI - General Chief Complaint: Chest Pain Stated Complaint: nausea, chest pain Time Seen by Provider: 03/03/22 13:25 Source: patient Mode of arrival: ambulatory Limitations: no limitations - History of Present Illness Initial Comments: 26-year-old male with past medical history of anxiety presents emergency Department with chest pain. States he feels a sharp pressure in the central portion of his chest. Pain comes on when he is attempting to relax. No last for approximately 30 seconds before spontaneously resolves. He was seen in the emergency department 2 days ago for similar complaint. Had full workup with normal labs. He did attempt to make an appointment with his primary care doctor however states that she cannot get in until the . Does have family history of cardiac disease. States that his mom has heart problems. He denies a ripping or tearing sensation in his back. He has had no previous cardiac workup before. Pain is not present at this time. No other alleviating, Perceptin or modifying factors - Related Data Home Medications Medication Instructions Recorded Confirmed hydrOXYzine HCL [Atarax] 50 mg PO HS 10/30/17 03/03/22 Docusate [Colace] 100 mg PO DAILY 03/03/22 03/03/22 Ergocalciferol [Vitamin D2 (1250 1,250 mcg PO Q14D 03/03/22 03/03/22 Mcg = 64995 Iu)] Escitalopram [Lexapro] 10 mg PO DAILY 03/03/22 03/03/22 Potassium Chloride ER [K-Dur 10] 10 meq PO TID-W/MEALS 03/03/22 03/03/22 Allergies Allergy/AdvReac Type Severity Reaction Status Date / Time latex Allergy Rash/Hives Verified 03/03/22 16:25 Penicillins Allergy Rash/Hives Verified 03/03/22 16:25 Review of Systems ROS Statement: Those systems with pertinent positive or pertinent negative responses have been documented in the HPI. ROS Other: All systems not noted in ROS Statement are negative. EKG Findings - EKG Comments: EKG Findings:: EKG demonstrates sinus rhythm with a rate of 83. MS interval 162. QRS 98. QTC of 398. No acute ST segment elevations or depressions Past Medical History Past Medical History: Asthma, GERD/Reflux Additional Past Medical History / Comment(s): social anxiety History of Any Multi-Drug Resistant Organisms: None Reported Past Surgical History: No Surgical Hx Reported Past Psychological History: Anxiety Smoking Status: Never smoker Past Alcohol Use History: None Reported Past Drug Use History: None Reported General Exam Limitations: no limitations General appearance: alert, in no apparent distress Head exam: Present: atraumatic, normocephalic, normal inspection Eye exam: Present: normal appearance, PERRL, EOMI. Absent: scleral icterus, c onjunctival injection, periorbital swelling ENT exam: Present: normal exam, mucous membranes moist Neck exam: Present: normal inspection. Absent: tenderness, meningismus, lymphadenopathy Respiratory exam: Present: normal lung sounds bilaterally. Absent: respiratory distress, wheezes, rales, rhonchi, stridor Cardiovascular Exam: Present: regular rate, normal rhythm, normal heart sounds. Absent: systolic murmur, diastolic murmur, rubs, gallop, clicks GI/Abdominal exam: Present: soft, normal bowel sounds. Absent: distended, tenderness, guarding, rebound, rigid Extremities exam: Present: normal inspection, full ROM, normal capillary refill. Absent: tenderness, pedal edema, joint swelling, calf tenderness Back exam: Present: normal inspection Neurological exam: Present: alert, oriented X3, CN II-XII intact Psychiatric exam: Present: normal affect, normal mood Skin exam: Present: warm, dry, intact, normal color. Absent: rash Course Vital Signs 03/03/22 03/03/22 03/03/22 13:23 14:00 14:30 Temperature 98.4 F Pulse Rate 98 75 74 Respiratory 18 20 22 Rate Blood Pressure 104/64 132/85 128/84 O2 Sat by Pulse 96 98 98 Oximetry 03/03/22 03/03/22 03/03/22 15:00 15:30 17:04 Temperature Pulse Rate 71 67 79 Respiratory 21 22 18 Rate Blood Pressure 120/75 112/65 O2 Sat by Pulse 98 99 99 Oximetry Chest Pain MDM - MDM Was pt. sent in by a medical professional or institution? no Did you speak to anyone other than the patient for history? no Did you review nursing and triage notes? yes and I agree Were old charts reviewed? yes, previous ED visit Differential Diagnosis? chest wall strain, ACS, PE, pleural effusion, costochondritis EKG interpreted by me (3pts min.)? yes X-rays interpreted by me (1pt min.)? no CT interpreted by me (1pt min.)? no U/S interpreted by me (1pt. min.)? no What testing was considered but not performed? (CT, X-rays, U/S, labs)? Why? ct chest however d-dimer negative so perc negative What meds were considered but not given? Why? none Did you discuss the management of the patient with other professionals? none Did you reconcile home meds? no Was smoking cessation discussed for >3mins.? no Was critical care preformed (if so, how long)? no Were there social determinants of health that impacted care today? How? (Homelessness, low income, unemployed, alcoholism, drug addiction, transportation, low edu. Level, literacy, decrease access to med. care, group home, rehab)? no Was there de-escalation of care discussed even if they declined? (Discuss DNR or withdrawal of care, Hospice)? no What co-morbidities impacted this encounter? (DM, HTN, Smoking, COPD, CAD, Cancer, CVA, Hep., AIDS, mental health diagnosis, sleep apnea, morbid obesity)? anxiety Was patient admitted / discharged? Upon arrival the patient was placed into room 9. A thorough history and physical exam was performed. EKG was obtained. Laboratory studies were conducted and reviewed. D-dimer negative. Troponin negative. Chest x-ray was completed 2 days ago and showed no acute process. I did discuss diagnosis, differential and treatment options with the patient. He'll be discharged home at this time. I did attempt to arrange an echo and Holter monitor however we are unable as the patient needs prior authorization. He is informed of this. He needs to follow-up with his primary care doctor for which she has no appointment on the . Return to the emergency room for any new or worsening symptoms. Patient discharged home in stable condition Undiagnosed new problem with uncertain prognosis? yes Drug Therapy requiring intensive monitoring for toxicity (Heparin, Nitro, Insulin, Cardizem)? no Were any procedures done? no Diagnosis/symptom? acute chest pain Acute, or Chronic, or Acute on Chronic? subacute Uncomplicated (without systemic symptoms) or Complicated (systemic symptoms)? complicated Side effects of treatment? none Exacerbation, Progression, or Severe Exacerbation] exacerbation Poses a threat to life or bodily function? yes Disposition Clinical Impression: Chest pain Disposition: HOME SELF-CARE Condition: Stable Instructions (If sedation given, give patient instructions): Chest Pain (ED) Additional Instructions: Please follow-up with your primary care doctor. He didn't echo, Holter monitoring and possible stress test. Return for any new or worsening symptoms Is patient prescribed a controlled substance at d/c from ED?: No Referrals: Cristiane Beltre MD [Primary Care Provider] - 1-2 days Time of Disposition: 16:26
[2022-03-03 16:36] LABS: ALT 101 U/L (4-49); AST 54 U/L (17-59); African American GFR (CKD) >90 (>60 ml/min/1.73 sqM); Albumin 4.7 g/dL (3.5-5.0); Alkaline Phosphatase 77 U/L (38-126); Anion Gap 10 mmol/L; Blood Urea Nitrogen 11 mg/dL (9-20); Calcium 9.3 mg/dL (8.4-10.2); Carbon Dioxide 27 mmol/L (22-30); Chloride 104 mmol/L (98-107); Glucose 99 mg/dL (74-99); Magnesium 2.2 mg/dL (1.6-2.3); Non-African American GFR(CKD) 84 (>60 ml/min/1.73 sqM); Potassium 4.2 mmol/L (3.5-5.1); Sodium 141 mmol/L (137-145); Total Bilirubin 0.9 mg/dL (0.2-1.3); Total Protein 8.2 g/dL (6.3-8.2)
[2022-03-03 17:07] VITALS: BP 112/65; PULSE 79; RESP 18
== END 2022-03-03 17:06 | disposition home or self-care (01) ==
LOC: EC 13:16
DX: R07.9 Chest pain, unspecified (principal); J45.909 Unspecified asthma, uncomplicated; F41.9 Anxiety disorder, unspecified; K21.9 Gastro-esophageal reflux disease without esophagitis; Z88.0 Allergy status to penicillin; Z91.040 Latex allergy status; Z79.899 Other long term (current) drug therapy
CPT/HCPCS: 36415; 80053; 83735; 84484; 85025; 85379; 85610; 85730; 93005; 99285

== ENCOUNTER 2023-11-16 21:51 | Emergency (ER) | payer OTHER ==
--- NOTE | 2023-11-16 23:53 | ED ---
Abdominal Pain HPI - General Chief Complaint: Abdominal Pain Stated Complaint: Abd Pain,Bloated Time Seen by Provider: 11/16/23 23:10 Source: patient Mode of arrival: ambulatory Limitations: no limitations - History of Present Illness Initial Comments: This patient is a 28-year-old man who presents with complaint of abdominal pain that has been going back approximately 2 months. The patient indicates the left upper quadrant is where the pain begins and then it seems to go towards the lower abdomen and periumbilical areas. He describes it as dull but also with a bloating sensation. He notes that it seems to get worse with eating. He has not noted relieving factors. No associated symptoms. MD Complaint: abdominal pain Onset/Timin -: month(s) Location: [facility] Radiation: none Migration to: periumbilical Severity: moderate Quality: other (Bloating) Consistency: intermittent Improves With: nothing Worsens With: eating Associated Symptoms: nausea - Related Data Home Medications Medication Instructions Recorded Confirmed hydrOXYzine HCL [Atarax] 50 mg PO HS 10/30/17 03/03/22 Docusate [Colace] 100 mg PO DAILY 03/03/22 03/03/22 Ergocalciferol [Vitamin D2 (1250 1,250 mcg PO Q14D 03/03/22 03/03/22 Mcg = 69732 Iu)] Escitalopram [Lexapro] 10 mg PO DAILY 03/03/22 03/03/22 Potassium Chloride ER [K-Dur 10] 10 meq PO TID-W/MEALS 03/03/22 03/03/22 Previous Rx's Medication Instructions Recorded Dicyclomine [Bentyl] 20 mg PO QID #15 tablet 11/17/23 Famotidine [Pepcid] 20 mg PO BID #14 tablet 11/17/23 Allergies Allergy/AdvReac Type Severity Reaction Status Date / Time latex Allergy Rash/Hives Verified 03/03/22 16:25 Penicillins Allergy Rash/Hives Verified 03/03/22 16:25 Review of Systems ROS Statement: Those systems with pertinent positive or pertinent negative responses have been documented in the HPI. ROS Other: All systems not noted in ROS Statement are negative. Constitutional: Denies: fever, chills, weakness Respiratory: Denies: cough, dyspnea Cardiovascular: Denies: chest pain, palpitations, edema Gastrointestinal: Reports: abdominal pain, nausea. Denies: vomiting, diarrhea, constipation, melena, hematochezia Genitourinary: Denies: dysuria, hematuria Musculoskeletal: Denies: back pain Skin: Denies: rash Neurological: Denies: headache, weakness Past Medical History Past Medical History: Asthma, GERD/Reflux Additional Past Medical History / Comment(s): social anxiety History of Any Multi-Drug Resistant Organisms: None Reported Past Surgical History: No Surgical Hx Reported Past Psychological History: Anxiety Smoking Status: Never smoker Past Alcohol Use History: None Reported Past Drug Use History: None Reported General Exam Limitations: no limitations General appearance: alert, in no apparent distress Head exam: Present: atraumatic, normocephalic Eye exam: Present: normal appearance. Absent: scleral icterus, conjunctival injection ENT exam: Present: normal oropharynx Neck exam: Present: normal inspection Respiratory exam: Present: normal lung sounds bilaterally. Absent: respiratory distress, wheezes, rales, rhonchi, stridor, accessory muscle use Cardiovascular Exam: Present: regular rate, normal rhythm, normal heart sounds. Absent: systolic murmur, diastolic murmur, rubs, gallop GI/Abdominal exam: Present: soft, normal bowel sounds. Absent: distended, tenderness, guarding, rebound, rigid, mass, pulsatile mass, hernia Extremities exam: Present: normal inspection, normal capillary refill. Absent: pedal edema, calf tenderness Back exam: Present: normal inspection. Absent: CVA tenderness (R), CVA te nderness (L) Neurological exam: Present: alert Skin exam: Present: warm, dry, intact, normal color. Absent: rash Course Vital Signs 11/16/23 11/17/23 22:12 02:39 Temperature 98 F 98.6 F Pulse Rate 118 H 85 Respiratory 20 18 Rate Blood Pressure 139/82 134/82 O2 Sat by Pulse 99 98 Oximetry Medical Decision Making - Medical Decision Making The patient had abdominal x-ray that I interpreted as negative for free air or obstruction. Was pt. sent in by a medical professional or institution (, PA, PHOTOGRAPHER PORTRAIT, urgent care, hospital, or [facility]...) When possible be specific @ -[No] Did you speak to anyone other than the patient for history (EMS, parent, family, police, friend...)? What history was obtained from this source @ -[No] Did you review nursing and triage notes (agree or disagree)? Why? @ -[I reviewed and agree with nursing and triage notes] Were old charts reviewed (outside hosp., previous admission, EMS record, old EKG, old radiological studies, urgent care reports/EKG's, [facility] records)? Report findings @ -[No old charts were reviewed] Differential Diagnosis (chest pain, altered mental status, abdominal pain women, abdominal pain men, vaginal bleeding, weakness, fever, dyspnea, syncope, head ache, dizziness, GI bleed, back pain, seizure, CVA, palpatations, mental health, musculoskeletal)? @ -[Differential Abdominal Pain Men: Appendicitis, cholecystitis, diverticulosis, ischemic bowel, pancreatitis, hepatitis, UTI, gastroenteritis, AAA, incarcerated hernia, bowel obstruction, constipation, inflammatory bowel, hepatitis, peptic ulcer disease, splenic infarction, perforated viscus, testicular torsion, this is not meant to be an all-inclusive list EKG interpreted by me (3pts min.). @ -[As above] X-rays interpreted by me (1pt min.). @ -[None done] CT interpreted by me (1pt min.). @ -[None done] U/S interpreted by me (1pt. min.). @ -[None done] What testing was considered but not performed or refused? (CT, X-rays, U/S, labs)? Why? @ -[None] What meds were considered but not given or refused? Why? @ -[None] Did you discuss the management of the patient with other professionals (professionals i.e. , PA, PHOTOGRAPHER PORTRAIT, lab, RT, psych nurse, manager social, stabilizer operator, teacher, chief learning officer, spring encaser)? Give summary @ -[No] Was smoking cessation discussed for >3mins.? @ -[No] Was critical care preformed (if so, how long)? @ -[No] Were there social determinants of health that impacted care today? How? (Homelessness, low income, unemployed, alcoholism, drug addiction, transp ortation, low edu. Level, literacy, decrease access to med. care, [facility], rehab)? @ -[No] Was there de-escalation of care discussed even if they declined (Discuss DNR or withdrawal of care, Hospice)? DNR status @ -[No] What co-morbidities impacted this encounter? (DM, HTN, Smoking, COPD, CAD, Cancer, CVA, ARF, Chemo, Hep., AIDS, mental health diagnosis, sleep apnea, morbid obesity)? @ -[None] Was patient admitted / discharged? Hospital course, mention meds given and route, prescriptions, significant lab abnormalities, going to OR and other pertinent info. @ -[Patient is a 28-year-old man presenting with exacerbation of pain he has been having intermittently for some time now. The patient's physical exam today not suggestive of acute surgical condition. The workup also benign. Discussed the appropriate further care and follow-up for additional evaluation as well as return parameters. Undiagnosed new problem with uncertain prognosis? @ -[No] Drug Therapy requiring intensive monitoring for toxicity (Heparin, Nitro, Insulin, Cardizem)? @ -[No] Were any procedures done? @ -[No] Diagnosis/symptom? @ -[Acute abdominal pain Acute, or Chronic, or Acute on Chronic? @ -[Acute Uncomplicated (without systemic symptoms) or Complicated (systemic symptoms)? @ -[Uncomplicated Side effects of treatment? @ -[No] Exacerbation, Progression, or Severe Exacerbation? @ -[No] Poses a threat to life or bodily function? How? (Chest pain, USA, NM, pneumonia, PE, COPD, DKA, ARF, appy, cholecystitis, CVA, Diverticulitis, Homicidal, Suicidal, threat to staff... and all critical care pts) @ -[No] - Lab Data Result diagrams: 11/16/23 23:23 11/16/23 23:23 Lab Results 11/16/23 11/16/23 11/16/23 Range/Units 23:23 23:23 23:23 WBC 9.2 (3.8-10.6) k/uL RBC 5.03 (4.30-5.90) m/uL Hgb 14.4 (13.0-17.5) gm/dL Hct 42.2 (39.0-53.0) % MCV 84.0 (80.0-100.0) fL MCH 28.7 (25.0-35.0) pg MCHC 34.1 (31.0-37.0) g/dL RDW 13.9 (11.5-15.5) % Plt Count 225 (150-450) k/uL MPV 6.8 Neutrophils % 68 % Lymphocytes % 23 % Monocytes % 5 % Eosinophils % 1 % Basophils % 1 % Neutrophils # 6.2 (1.3-7.7) k/uL Lymphocytes # 2.1 (1.0-4.8) k/uL Monocytes # 0.5 (0-1.0) k/uL Eosinophils # 0.1 (0-0.7) k/uL Basophils # 0.1 (0-0.2) k/uL Sodium 140 (137-145) mmol/L Potassium 3.9 (3.5-5.1) mmol/L Chloride 107 (98-107) mmol/L Carbon Dioxide 30 (22-30) mmol/L Anion Gap 3 mmol/L BUN 12 (9-20) mg/dL Creatinine 1.11 (0.66-1.25) mg/dL Est GFR (CKD-EPI)AfAm >90 (>60 ml/min/1.73 sqM) Est GFR (CKD-EPI)NonAf >90 (>60 ml/min/1.73 sqM) Glucose 101 H (74-99) mg/dL Plasma Lactic Acid Venkatesh 0.7 (0.7-2.0) mmol/L Calcium 9.2 (8.4-10.2) mg/dL Total Bilirubin 0.6 (0.2-1.3) mg/dL AST 29 (17-59) U/L ALT 29 (4-49) U/L Alkaline Phosphatase 72 (38-126) U/L C-Reactive Protein <0.5 (<1.0) mg/dL Total Protein 7.1 (6.3-8.2) g/dL Albumin 4.2 (3.5-5.0) g/dL Amylase 53 (30-110) U/L Lipase 81 (23-300) U/L Urine Color Urine Appearance (Clear) Urine pH (5.0-8.0) Ur Specific [place] (1.001-1.035) Urine Protein (Negative) Urine Glucose (UA) (Negative) Urine Ketones (Negative) Urine Blood (Negative) Urine Nitrite (Negative) Urine Bilirubin (Negative) Urine Urobilinogen (<2.0) mg/dL Ur Leukocyte Esterase (Negative) 11/17/23 Range/Units 02:00 WBC (3.8-10.6) k/uL RBC (4.30-5.90) m/uL Hgb (13.0-17.5) gm/dL Hct (39.0-53.0) % MCV (80.0-100.0) fL MCH (25.0-35.0) pg MCHC (31.0-37.0) g/dL RDW (11.5-15.5) % Plt Count (150-450) k/uL MPV Neutrophils % % Lymphocytes % % Monocytes % % Eosinophils % % Basophils % % Neutrophils # (1.3-7.7) k/uL Lymphocytes # (1.0-4.8) k/uL Monocytes # (0-1.0) k/uL Eosinophils # (0-0.7) k/uL Basophils # (0-0.2) k/uL Sodium (137-145) mmol/L Potassium (3.5-5.1) mmol/L Chloride (98-107) mmol/L Carbon Dioxide (22-30) mmol/L Anion Gap mmol/L BUN (9-20) mg/dL Creatinine (0.66-1.25) mg/dL Est GFR (CKD-EPI)AfAm (>60 ml/min/1.73 sqM) Est GFR (CKD-EPI)NonAf (>60 ml/min/1.73 sqM) Glucose (74-99) mg/dL Plasma Lactic Acid Venkatesh (0.7-2.0) mmol/L Calcium (8.4-10.2) mg/dL Total Bilirubin (0.2-1.3) mg/dL AST (17-59) U/L ALT (4-49) U/L Alkaline Phosphatase (38-126) U/L C-Reactive Protein (<1.0) mg/dL Total Protein (6.3-8.2) g/dL Albumin (3.5-5.0) g/dL Amylase (30-110) U/L Lipase (23-300) U/L Urine Color Colorless Urine Appearance Clear (Clear) Urine pH 6.5 (5.0-8.0) Ur Specific [place] 1.011 (1.001-1.035) Urine Protein Negative (Negative) Urine Glucose (UA) Negative (Negative) Urine Ketones Negative (Negative) Urine Blood Negative (Negative) Urine Nitrite Negative (Negative) Urine Bilirubin Negative (Negative) Urine Urobilinogen <2.0 (<2.0) mg/dL Ur Leukocyte Esterase Negative (Negative) Disposition Clinical Impression: Abdominal pain Disposition: HOME SELF-CARE Condition: Good Instructions (If sedation given, give patient instructions): Abdominal Pain (ED) Prescriptions: Dicyclomine [Bentyl] 20 mg PO QID #15 tablet Famotidine [Pepcid] 20 mg PO BID #14 tablet Is patient prescribed a controlled substance at d/c from ED?: No Referrals: None,Stated [Primary Care Provider] - 1-2 days Radha Chaney MD [STAFF PHYSICIAN] - 1-2 days
[2023-11-17 00:49] LABS: Basophils # (A) 0.1 k/uL (0-0.2); Basophils % (A) 1 %; Eosinophils # (A) 0.1 k/uL (0-0.7); Eosinophils % (A) 1 %; HCT 42.2 % (39.0-53.0); HGB 14.4 gm/dL (13.0-17.5); Lymphocytes # (A) 2.1 k/uL (1.0-4.8); Lymphocytes % (A) 23 %; MCH 28.7 pg (25.0-35.0); MCHC 34.1 g/dL (31.0-37.0); Mean Platelet Volume 6.8; Monocytes # (A) 0.5 k/uL (0-1.0); Monocytes % (A) 5 %; Neutrophils # (A) 6.2 k/uL (1.3-7.7); Neutrophils % (A) 68 %; Platelet Count 225 k/uL (150-450); RBC 5.03 m/uL (4.30-5.90); RDW 13.9 % (11.5-15.5); WBC 9.2 k/uL (3.8-10.6)
--- NOTE | 2023-11-17 00:57 | XR ---
EXAM: XR Abdomen, 1 View CLINICAL HISTORY: ITS.REASON XR Reason: abdominal pain TECHNIQUE: Frontal supine view of the abdomen/pelvis. COMPARISON: 09/02/2021. FINDINGS: Gastrointestinal tract: Moderate quantity of stool throughout the colon. Nonspecific bowel gas pattern. No dilation. Organs: Unremarkable as visualized. No radiopaque renal calculi. Bones/joints: Osseous structures and soft tissues are unremarkable. No acute fracture. IMPRESSION: 1. Moderate quantity of stool. 2. Nonspecific bowel gas pattern. 3. No radiopaque renal calculi.
[2023-11-17 01:02] LABS: ALT 29 U/L (4-49); AST 29 U/L (17-59); African American GFR (CKD) >90 (>60 ml/min/1.73 sqM); Albumin 4.2 g/dL (3.5-5.0); Alkaline Phosphatase 72 U/L (38-126); Amylase 53 U/L (30-110); Anion Gap 3 mmol/L; Blood Urea Nitrogen 12 mg/dL (9-20); Calcium 9.2 mg/dL (8.4-10.2); Carbon Dioxide 30 mmol/L (22-30); Chloride 107 mmol/L (98-107); Glucose 101 mg/dL (74-99); Lipase 81 U/L (23-300); Non-African American GFR(CKD) >90 (>60 ml/min/1.73 sqM); Potassium 3.9 mmol/L (3.5-5.1); Sodium 140 mmol/L (137-145); Total Bilirubin 0.6 mg/dL (0.2-1.3); Total Protein 7.1 g/dL (6.3-8.2)
[2023-11-17 01:04] LABS: C Reactive Protein <0.5 mg/dL (<1.0)
[2023-11-17 02:41] VITALS: BP 134/82; PULSE 85; RESP 18; TEMP 98.6
[2023-11-17 02:50] LABS: Appearance,Urine Clear (Clear); Bilirubin,Urine Negative (Negative); Blood,Urine Negative (Negative); Color,Urine Colorless; Glucose,Urine (UA) Negative (Negative); Ketones,Urine Negative (Negative); Leukocyte Esterase,Urine Negative (Negative); Nitrite,Urine Negative (Negative); PH, Urine 6.5 (5.0-8.0); Protein,Urine Negative (Negative); Specific Gravity,Urine 1.011 (1.001-1.035); Urobilinogen,Urine <2.0 mg/dL (<2.0)
== END 2023-11-17 02:43 | disposition home or self-care (01) ==
LOC: EC 21:51
CPT/HCPCS: 36415; 74018; 80053; 81003; 82150; 83605; 83690; 85025; 86140; 99284

== ENCOUNTER → 2023-12-05 | Outpatient (CLI) | payer OTHER ==
[2023-12-05 20:19] LABS: Gliadin AB IgA, Deaminated Negative (Negative); Gliadin AB IgA, Unit 0.7 U/mL; Gliadin AB IgG, Deaminated Negative (Negative); Gliadin AB IgG, Unit <0.4 U/mL
[2023-12-05 20:21] LABS: Clam IgE <0.10 kU/L; Codfish IgE <0.10 kU/L; Egg White IgE <0.10 kU/L; Peanut IgE <0.10 kU/L; Scallop IgE <0.10 kU/L; Shrimp IgE <0.10 kU/L; Soybean IgE <0.10 kU/L; Walnut IgE (Food) <0.10 kU/L
== END | disposition home or self-care (01) ==
LOC: LABWHC1 11:44
PROVIDERS: ATTEND Nurse Practitioner Family
DX: K59.04 Chronic idiopathic constipation (principal)
CPT/HCPCS: 36415; 82785; 83516; 85652; 86003; 86140

== ENCOUNTER → 2024-05-21 | Outpatient (CLI) | payer OTHER ==
[2024-05-21 14:38] VITALS: BP 119/72; PULSE 70; RESP 16; TEMP 97.7
--- NOTE | 2024-05-21 15:15 | P.SLEEP ---
History of Present Illness DATE: 05/21/2024 CONSULTATION/NEW PATIENT EVALUATION HISTORY OF PRESENT ILLNESS/SLEEP-WAKE EVALUATION: -year-old gentleman had been evaluated in the sleep center for difficulties to initiate sleep and multiple awakenings from sleep. SLEEP SCHEDULE: Usually sleep schedule from 11 PM to 7 AM. FALLING ASLEEP: Patient has difficulties with falling asleep, has TV set in bedroom. DURING SLEEP: Patient sleeps in different positions, wakes up from sleep 3 times with possibly 1 episode of nocturia. Positive history of grinding teeth no history of hypnogogical hallucinations, sleep paralysis, or cataplexy. DURING THE DAY/WAKE STATE: In the morning patient wake up tired has episodes of depression and anxiety. [place] sleepiness scale is 3. Patient does not take naps. PAST MEDICAL HISTORY: Anxiety. PAST SURGICAL HISTORY: None. MEDICATIONS: Have been reviewed, please see below. SOCIAL HISTORY: Please see below. FAMILY HISTORY: Please see below. REVIEW OF SYSTEMS: Difficulties to initiate sleep, multiple awakenings from sleep. No fevers. No double vision. No recent chest pain. No shortness of breath. No abdominal pain. No bleeding episodes. No blood in urine. No seizure episodes. PHYSICAL EXAMINATION: GENERAL: A pleasant patient without any distress. VITAL SIGNS: Please see below, weight 272 pounds. HEENT: PERRLA, EOMI. Evaluation of oropharynx showed tongue protrudes midline, low position of soft palate Mallampati 3. NECK: Supple. No JVD. Thyroid is not palpable. 17 inches in circumference. LUNGS: Clear to percussion and to auscultation. Good air exchange. No wheezing or rhonchi. HEART: S1, S2 regular. No murmurs, gallops or rubs. ABDOMEN: Soft and nontender. Bowel sounds are present. No organomegaly appreciated. EXTREMITIES: No clubbing or cyanosis. PACKER DENTURE: Awake, alert, and oriented x3. Cranial nerves 2 to 7 intact. There is no fasciculation or atrophy noted. No focal deficits observed. ASSESSMENT: 1. Multiple awakenings from sleep, small oropharyngeal airspace low position of soft palate Mallampati 3, wide neck 17 inches in circumference possible obstructive sleep apnea hypopnea syndrome. 2. Difficulties to initiate sleep secondary to psychophysiological insomnia and anxiety. 3. Mild obesity, BMI 35.8. 4. Anxiety. PLAN: 1. Polysomnography for evaluation of patient's breathing during sleep. 2. Following plan after reading sleep study. 3. Preferable position during sleep on the side. 4. No driving if patient feels any sleepiness. Patient is aware of civil and criminal liability for unsafe driving. 5. Sleep hygiene with regular sleep time for at least 7.5-8 hours. 6. Watching weight. Thank you very much for referring this patient for consultation. Sincerely, Gonzalez Maguire MD, PhD, FAASM. Diplomat of [place] [employer], Sleep Medicine Board by [place] [employer] [place] [employer] Superintendent of [facility] [place] cc: Julien Maloney MD Past Medical History Past Medical History: Asthma, GERD/Reflux Additional Past Medical History / Comment(s): social anxiety, Insomnia History of Any Multi-Drug Resistant Organisms: None Reported Past Surgical History: No Surgical Hx Reported Past Anesthesia/Blood Transfusion Reactions: No Reported Reaction Past Psychological History: Anxiety Smoking Status: Never smoker Past Alcohol Use History: None Reported Past Drug Use History: None Reported - Past Family History Mother Family Medical History: Asthma, Coronary Artery Disease (CAD), Diabetes Mellitus, GERD/Reflux, Sleep Apnea/CPAP/BIPAP Additional Family Medical History / Comment(s): snoring/restless legs Father Family Medical History: Diabetes Mellitus, Sleep Apnea/CPAP/BIPAP Additional Family Medical History / Comment(s): snoring Brother(s) Family Medical History: Asthma Additional Family Medical History / Comment(s): headaches Medications and Allergies Home Medications Medication Instructions Recorded Confirmed Type hydrOXYzine HCL [Atarax] 50 mg PO HS 10/30/17 03/03/22 History Docusate [Colace] 100 mg PO DAILY 03/03/22 03/03/22 History Ergocalciferol [Vitamin D2 (1250 1,250 mcg PO Q14D 03/03/22 03/03/22 History Mcg = 63112 Iu)] Escitalopram [Lexapro] 10 mg PO DAILY 03/03/22 03/03/22 History Potassium Chloride ER [K-Dur 10] 10 meq PO TID-W/MEALS 03/03/22 03/03/22 History Dicyclomine [Bentyl] 20 mg PO QID #15 tablet 11/17/23 Rx Famotidine [Pepcid] 20 mg PO BID #14 tablet 11/17/23 Rx Cetirizine HCl 10 mg PO DIRECTED PRN 05/21/24 05/21/24 History FLUoxetine HCL [PROzac] 20 mg PO BID 05/21/24 05/21/24 History Propranolol [Inderal] 10 mg PO DIRECTED PRN 05/21/24 05/21/24 History Allergies Allergy/AdvReac Type Severity Reaction Status Date / Time latex Allergy Rash/Hives Verified 03/03/22 16:25 Penicillins Allergy Rash/Hives Verified 03/03/22 16:25 Physical Exam Vitals: Vital Signs Temp Pulse Resp BP Pulse Ox 05/21/24 14:37 97.7 F 70 16 119/72 96 Intake and Output 05/21/24 05/21/24 05/21/24 06:59 14:59 22:59 Other: Weight 123.377 kg Sleep Note - Sleep Data ESS Total: 3 - Sleep Note Sleep Note: Temperature: 97.7 F Pulse Rate: 70 Respiratory Rate: 16 Blood Pressure: 119/72 SpO2: 96 Height: 6 ft 1 in Weight: 123.377 kg BMI: Neck Circumference: 17
== END ==
LOC: 3 N SLEEP 13:15
PROVIDERS: ATTEND Internal Medicine
DX: F51.05 Insomnia due to other mental disorder (principal); E66.01 Morbid (severe) obesity due to excess calories; F41.9 Anxiety disorder, unspecified; Z68.35 Body mass index [BMI] 35.0-35.9, adult; Z91.040 Latex allergy status; Z88.0 Allergy status to penicillin
CPT/HCPCS: 99211